=== PATIENT | male | born 1985 | race Caucasian/White ===

== ENCOUNTER 2019-07-26 20:40 | Emergency (ER) | payer SELFPAY ==
[~2019-07-26] VITALS: Ht 175.3 cm; Wt 78.0 kg
[2019-07-27 01:00] VITALS: BP 137/74
== END 2019-07-26 22:13 | disposition left against medical advice (07) ==
LOC: EDSEX 20:40 → ER 20:40
DX: J02.9 Acute pharyngitis, unspecified (principal)
CPT/HCPCS: 99281